=== PATIENT | female | born 1960 | race Caucasian/White ===

== ENCOUNTER 2019-10-07 21:13 | Emergency (ER) | payer OTHER ==
[~2019-10-07] VITALS: Ht 160 cm; Wt 61.2 kg
[~2019-10-07 21:13] MED LIST: ALBU90OI INH; ALBU90OI6 INH; AZIT250 PO; CEPH500 PO; CYCL10 PO; HYDACE10B PO; LEVFLO500 PO; NAPR500 PO; Norco 5-325 Ta1 EACH PO; PRED20 PO; PROCODE120 PO; SPACE CHAMBER1 EACH MC; Zithromax250 MG PO
[2019-10-07] MEDS ORDERED: Augmentin 875-1 EACH PO (22:19)
== END 2019-10-07 22:30 | disposition home or self-care (01) ==
LOC: ER 21:13
DX: S61.451A Open bite of right hand, initial encounter (principal); F17.200 Nicotine dependence, unspecified, uncomplicated; Z88.6 Allergy status to analgesic agent; Z91.09 Other allergy status, other than to drugs and biological substances; W54.0XXA Bitten by dog, initial encounter
CPT/HCPCS: 12001; 73130; 99283-25; A9270

== ENCOUNTER 2019-10-09 15:36 | Emergency (ER) | payer OTHER ==
[~2019-10-09] VITALS: Ht 152.4 cm; Wt 54.4 kg
[~2019-10-09 15:36] MED LIST changes: +Augmentin 875-1 EACH PO
== END 2019-10-09 16:25 | disposition home or self-care (01) ==
LOC: ER 15:36
DX: S61.451D Open bite of right hand, subsequent encounter (principal); F17.200 Nicotine dependence, unspecified, uncomplicated; Z88.6 Allergy status to analgesic agent; Z91.09 Other allergy status, other than to drugs and biological substances
CPT/HCPCS: 96372; 99282-25

== ENCOUNTER 2021-05-19 14:37 | Emergency (ER) | payer OTHER ==
[~2021-05-19] VITALS: Ht 149.9 cm; Wt 56.7 kg
[2021-05-19 15:35] LABS: BASOPHILS ABSOLUTE AUTO 0.04 K/mm3 (0.00-0.23); BASOPHILS PERCENT AUTO 1 % (0-2); EOSINOPHILS ABSOLUTE AUTO 0.19 K/mm3 (0.00-0.68); EOSINOPHILS PERCENT AUTO 2 % (0-6); Hematocrit 40.1 % (33.0-51.0); Hemoglobin 13.2 g/dL (11.5-16.0); IMMATURE GRAN ABSOLUTE AUTO 0.02 K/mm3 (0.00-0.10); IMMATURE GRAN PERCENT AUTO 0 % (0-1); LYMPHOCYTES ABSOLUTE AUTO 2.09 K/mm3 (0.84-5.20); LYMPHOCYTES PERCENT AUTO 24 % (21-46); MONOCYTES ABSOLUTE AUTO 0.65 K/mm3 (0.16-1.47); MONOCYTES PERCENT AUTO 7 % (4-13); Mean Corpuscular HGB 29.4 pg (26.0-34.0); Mean Corpuscular HGB Conc 32.9 g/dL (31.5-36.5); Mean Corpuscular Volume 89 fL (80-100); Mean Platelet Volume 9.5 fL (9.1-12.4); NEUTROPHILS ABSOLUTE AUTO 5.82 K/mm3 (1.96-9.15); NEUTROPHILS PERCENT AUTO 66 % (41-73); Platelet Count 304 K/mm3 (150-400); RDW Coefficient Variation 12.8 % (11.7-14.2); RDW Standard Deviation 41.9 fL (35.1-46.3); Red Blood Cell Count 4.49 M/mm3 (3.80-5.20); White Blood Cell Count 8.81 K/mm3 (4.00-11.30)
[2021-05-19 15:54] LABS: Alanine Aminotransfer (ALT/SGP 57 U/L (12-78); Albumin, Blood 3.2 g/dL (3.4-5.0); Albumin/Globulin Ratio 0.8 (0.8-1.8); Alk Phos 70 U/L (50-136); Anion Gap 3 mmol/L (6-16); Aspartate Aminotrans (AST/SGOT 38 U/L (12-37); Bilirubin, Total 0.4 mg/dL (0.1-1.0); Blood Urea Nitrogen 19 mg/dL (8-24); Bun/Creatinine Ratio 24.1 (12.0-20.0); CO2, Blood 28 mmol/L (21-32); Calcium, Blood 8.7 mg/dL (8.5-10.1); Chloride, Blood 105 mmol/L (98-108); Creatinine, Blood 0.79 mg/dL (0.40-1.00); Globulin, Blood 3.8 g/dL (2.2-4.0); Glomerular Filtration Rate >60 (60-); Glucose, Blood 127 mg/dL (70-99); Potassium, Blood 3.4 mmol/L (3.5-5.5); Sodium, Blood 136 mmol/L (136-145)
[2021-05-19 16:10] LABS: Influenza A, PCR NEGATIVE (NEGATIVE); Influenza B, PCR NEGATIVE (NEGATIVE); Resp Syncytial Virus, PCR NEGATIVE (NEGATIVE); SARS-Cov-2 (COVID-19) PCR, MMC NEGATIVE (NEGATIVE)
[2021-05-19] MEDS ORDERED: ONDA4ODT MM (17:03)
== END 2021-05-19 17:47 | disposition home or self-care (01) ==
LOC: ER 14:37
PROVIDERS: Physician Assistant
DX: A08.4 Viral intestinal infection, unspecified (principal); Z20.822 Contact with and (suspected) exposure to COVID-19; F17.200 Nicotine dependence, unspecified, uncomplicated; Z88.6 Allergy status to analgesic agent; Z91.048 Other nonmedicinal substance allergy status
CPT/HCPCS: 0241U; 36415; 80053; 85025; J2405

== ENCOUNTER 2024-01-06 09:20 | Day surgery (SDC) | payer OTHER ==
[~2024-01-06] VITALS: Ht 149.9 cm; Wt 58.9 kg
[~2024-01-06 09:20] MED LIST changes: +Balanced Salt Epinephrine Irrigation Solution 500 mL IR SCH; +Lidocaine HCl/Pf 1% 5 ML VIAL XX SCH; +Moxifloxacin HCL 0.5 MG/0.1 ML 0.4MLSYR RIGHTEYE SCH; +NS 500 ML IV ONE; +ONDA4ODT MM; +PHENYLEPHRINE\\TROPICAMIDE\\TETRACAINE OPHTHALMIC DILATING SOLN RIGHTEYE PRN; +Povidone-Iodine 450 DROP/30 ML Solution RIGHTEYE SCH
[2024-01-06] MEDS ORDERED: FentaNYL Citrate 50 MCG/ML 2 ML Injection ONE (09:34)
[2024-01-06] MEDS ORDERED: Midazolam HCl 1MG / ML 2ML Vial ONE (09:34)
[2024-01-06] MEDS ORDERED: FLUTICASONE-SA1 EAC9 (09:58)
[2024-01-06] MEDS ORDERED: PROAIR RESPICL90 MCG IH (09:58)
[2024-01-06] MEDS ORDERED: ATORVASTATIN CA20 MG PO (10:01)
[2024-01-06] MEDS ORDERED: NS 1,000 ML IV ONE (10:14)
--- NOTE | 2024-01-06 10:30 | NUR ---
[facility]24 [facility] SUN NOTIFIED THAT PATIENT REPORTS ANAPHYLACTIC REACTION TO ALL IODINE,EVEN TOPICAL CAUSING FACIAL SWELLING AND DIFFICULTY BREATHING. PER DR SUN, CAN USE ANOTHER SOLUTION AND AVOID THE BETADINE PREP.
[2024-01-06 11:04] VITALS: BP 129/79
== END 2024-01-06 11:17 | disposition home or self-care (01) ==
LOC: ORSCSDS 09:20
PROVIDERS: Student in an Organized Health Care Education/Training Program
PROC: 08RJ3JZ Replacement of Right Lens with Synthetic Substitute, Percutaneous Approach (ICD-10-PCS; principal; 2024-01-06 11:00)
DX: H25.813 Combined forms of age-related cataract, bilateral (principal); F17.210 Nicotine dependence, cigarettes, uncomplicated
CPT/HCPCS: J2250; J3010; J7040; V2632

== ENCOUNTER 2024-01-13 10:34 | Day surgery (SDC) | payer OTHER ==
[~2024-01-13] VITALS: Ht 149.9 cm; Wt 59.0 kg
[~2024-01-13 10:34] MED LIST changes: +ATORVASTATIN CA20 MG PO; +FLUTICASONE-SA1 EAC9; +Lidocaine HCl/Pf 1% 5 ML VIAL ONE; +Moxifloxacin HCL 0.5 MG/0.1 ML 0.4MLSYR LEFTEYE SCH; -Moxifloxacin HCL 0.5 MG/0.1 ML 0.4MLSYR RIGHTEYE SCH; +PHENYLEPHRINE\\TROPICAMIDE\\TETRACAINE OPHTHALMIC DILATING SOLN LEFTEYE PRN; -PHENYLEPHRINE\\TROPICAMIDE\\TETRACAINE OPHTHALMIC DILATING SOLN RIGHTEYE PRN; +PROAIR RESPICL90 MCG IH; -Povidone-Iodine 450 DROP/30 ML Solution RIGHTEYE SCH
[2024-01-13] MEDS ORDERED: NS 500 ML IV ONE ×2 (11:11→11:17)
[2024-01-13] MEDS ORDERED: Midazolam HCl 1MG / ML 2ML Vial ONE (11:14)
[2024-01-13 11:43] VITALS: BP 142/83
== END 2024-01-13 11:55 | disposition home or self-care (01) ==
LOC: ORSCSDS 10:34
PROVIDERS: Student in an Organized Health Care Education/Training Program
PROC: 08RK3JZ Replacement of Left Lens with Synthetic Substitute, Percutaneous Approach (ICD-10-PCS; principal; 2024-01-13 12:00)
DX: H25.812 Combined forms of age-related cataract, left eye (principal); H21.81 Floppy iris syndrome; Z96.1 Presence of intraocular lens; J44.9 Chronic obstructive pulmonary disease, unspecified; F17.210 Nicotine dependence, cigarettes, uncomplicated
CPT/HCPCS: J2001; J2250; J7040; V2632